=== PATIENT | male | born 1995 | race American Indian/Alaskan Native ===

== ENCOUNTER 2020-11-14 02:45 | Emergency (ER) | payer SELFPAY ==
--- NOTE | 2020-11-14 02:58 | Emergency Department Report ---
ED Seizure HPI - General Stated Complaint: BODYACHES - History of Present Illness Initial Comments: 25-year-old -Burmese male with a past medical history of seizure disorde r who has been in denial about his seizures for quite some time presents emerged department complaining of a couple month history of progressively worsening seizures having several seizures this month but on this last few days been having some issues with anxiety and increased syncope preceding his seizure activity and having some episodes of altered mental status. Reports having a headache after his seizure disorder and feels kind of weak and tingling overall. Has sharp and lancinating pain that is radiating throughout his body and the sensation of heaviness to his hands and legs. Reports no hemoptysis, hematemesis hematochezia. Reports no fever, chills, sweats. Witnessed:: Yes Trauma: No Seizure History: known seizure disorder Possible Precipitating Event: stress, other Associated Symptoms: confusion. denies: chest pain, cough, diaphoresis, loss of appetite, malaise, rash, shortness of breath, weakness, tongue injury, shoulder dislocation Treatments Prior to Arrival: none - Related Data Allergies Allergy/AdvReac Type Severity Reaction Status Date / Time divalproex sodium Allergy Unknown Verified 11/14/20 03:02 [From [facility]] ED Review of Systems ROS: Stated complaint: BODYACHES Other details as noted in HPI Comment: All other systems reviewed and negative ED Physical Exam - General General appearance: alert, in no apparent distress - Head Head exam: Present: atraumatic, normocephalic - Eye Eye exam: Present: normal appearance, other (Negative funduscopic examination). Absent: nystagmus - ENT ENT exam: Present: mucous membranes moist - Neck Neck exam: Present: normal inspection, full ROM. Absent: lymphadenopathy - Respiratory Respiratory exam: Present: normal lung sounds bilaterally. Absent: respiratory distress - Cardiovascular Cardiovascular Exam: Present: regular rate, normal rhythm. Absent: systolic murmur, diastolic murmur, rubs, gallop - GI/Abdominal GI/Abdominal exam: Present: soft, normal bowel sounds. Absent: tenderness, guarding, hypoactive bowel sounds - Rectal Rectal exam: Present: deferred - Extremities Exam Extremities exam: Present: normal inspection - Back Exam Back exam: Present: normal inspection - Neurological Exam Neurological exam: Present: alert, oriented X3 - Psychiatric Psychiatric exam: Present: normal affect, normal mood - Skin Skin exam: Present: warm, dry, intact, normal color. Absent: rash ED Course Vital Signs 11/14/20 11/14/20 02:54 02:58 Temperature 97.7 F 97.4 F L Pulse Rate 105 H Respiratory 16 Rate Blood Pressure 113/64 O2 Sat by Pulse 95 Oximetry ED Medical Decision Making - Lab Data Result diagrams: 11/14/20 02:55 11/14/20 02:55 - Radiology Data Radiology results: report reviewed [facility] [address] [place] [address] Cat Scan Report Signed Patient: KENDELL CUELLAR MR#: [id number] : 1995 Acct:[id number] Age/Sex: 25 / M ADM Date: 11/14/20 Loc: ED Attending Dr: Ordering Physician: EDGAR DEJESUS Date of Service: 11/14/20 Procedure(s): CT head/brain wo con Accession Number(s): [id number] cc: EDGAR DEJESUS CT HEAD WITHOUT CONTRAST INDICATION / CLINICAL INFORMATION: Seizure. TECHNIQUE: All CT scans at this location are performed using CT dose reduction for ALARA by means of automated exposure control. COMPARISON: None available. FINDINGS: HEMORRHAGE: None. EXTRA-AXIAL SPACES: Normal in size and morphology for the patient's age. VENTRICULAR SYSTEM: Normal in size and morphology for the patient's age. CEREBRAL PARENCHYMA: No significant abnormality. No acute territorial infarct. MIDLINE SHIFT / HERNIATION: None. CEREBELLUM / BRAINSTEM: No significant abnormality. ORBITS: Normal as visualized. SOFT TISSUES: No significant abnormality. SKULL: No significant abnormality. PARANASAL SINUSES / MASTOID AIR CELLS: Normal as visualized. ADDITIONAL FINDINGS: None. IMPRESSION: 1. No acute intracranial abnormality. Signer Name: Jef Polanco MD Signed: 11/14/2020 3:30 AM Workstation Name: [id number] Transcribed By: Dictated By: Jef Polanco MD Electronically Authenticated By: Jef Polanco MD Signed Date/Time: 11/14/20329 DD/ 7 TD/TT: - Medical Decision Making 25-year-old F Burmese male with seizure disorder noncompliant presents emerged department complaint complaining of having multiple seizures this year. CT scan shows no acute processes and laboratory level was relatively benign. Patient was resting comfortably with no acute acute distress sleeping well taking multiple shakes to arouse were alert and oriented once he did become aroused. He was there was no neurological deficit during this emergency room visit. I discussed with him the need for compliance and to follow-up with his primary care provider to restart his antiseizure medication. At the time no new the time of discharge there was of a verbal exchange between he and nurses that apparently got got overheated and he was escorted out of the emergency department Critical care attestation.: If time is entered above; I have spent that time in minutes in the direct care of this critically ill patient, excluding procedure time. ED Disposition Clinical Impression: Seizure disorder Disposition: DC-01 TO HOME OR SELFCARE Is pt being admited?: No Does the pt Need Aspirin: No Condition: Stable Instructions: Seizure, Adult Referrals: PRIMARY CAREMD [Primary Care Provider] - 3-5 Days BONNIE SALVADOR MD [Staff Physician] - 3-5 Days
[2020-11-14 03:03] VITALS: BP 113/64
--- NOTE | 2020-11-14 03:35 | Cat Scan Report ---
CT HEAD WITHOUT CONTRAST INDICATION / CLINICAL INFORMATION: Seizure. TECHNIQUE: All CT scans at this location are performed using CT dose reduction for ALARA by means of automated exposure control. COMPARISON: None available. FINDINGS: HEMORRHAGE: None. EXTRA-AXIAL SPACES: Normal in size and morphology for the patient's age. VENTRICULAR SYSTEM: Normal in size and morphology for the patient's age. CEREBRAL PARENCHYMA: No significant abnormality. No acute territorial infarct. MIDLINE SHIFT / HERNIATION: None. CEREBELLUM / BRAINSTEM: No significant abnormality. ORBITS: Normal as visualized. SOFT TISSUES: No significant abnormality. SKULL: No significant abnormality. PARANASAL SINUSES / MASTOID AIR CELLS: Normal as visualized. ADDITIONAL FINDINGS: None. IMPRESSION: 1. No acute intracranial abnormality. Signer Name: Jef Polanco MD Signed: 11/14/2020 3:30 AM Workstation Name: [id number]
[2020-11-14 04:16] LABS: Basophils % (Auto) 0.9 % (0.0-1.8); Eosinophils # (Auto) 0.1 K/mm3 (0.0-0.4); Eosinophils % (Auto) 2.7 % (0.0-4.3); Hematocrit 46.2 % (35.5-45.6); Hemoglobin 15.5 gm/dl (11.8-15.2); Lymphocytes % (Auto) 42.5 % (13.4-35.0); Mean Corpuscular HGB Conc 34 % (32-34); Mean Corpuscular Volume 94 fl (84-94); Monocytes # (Auto) 0.5 K/mm3 (0.0-0.8); Monocytes % (Auto) 10.1 % (0.0-7.3); Red Blood Count 4.91 M/mm3 (3.65-5.03)
[2020-11-14 04:19] LABS: Platelet Count 148 K/mm3 (140-440)
[2020-11-14 04:31] LABS: Alanine Aminotransferase 85 units/L (7-56); Albumin 4.5 g/dL (3.9-5); BUN/Creatinine Ratio 18; Blood Urea Nitrogen 16 mg/dL (9-20); Calcium 9.5 mg/dL (8.4-10.2); Hemolysis Index 6
== END 2020-11-14 07:00 | disposition home or self-care (01) ==
LOC: ED 02:45
DX: G40.909 Epilepsy, unspecified, not intractable, without status epilepticus (principal); Z88.8 Allergy status to other drugs, medicaments and biological substances
CPT/HCPCS: 36415; 70450; 80053; 80320; 85025; G0480